=== PATIENT | male | born 1950 | race Caucasian/White ===

== ENCOUNTER 2017-03-20 09:47 | Day surgery (SDC) | payer MEDICARE ==
--- NOTE | 2017-03-13 11:03 | HP ---
CC: Dr. [facility], [facility]; Dr. Chris Hayward* PREOPERATIVE HISTORY AND PHYSICAL: DATE OF PREOPERATIVE HISTORY AND PHYSICAL EXAM: 03/13/17. DATE OF ADMISSION: This patient is scheduled for same day surgery admission by Dr. Fleming on 03/20/17. ATTENDING SURGEON: Dr. Woodrow Fleming* (dictated by Alberto Lam NP). CHIEF COMPLAINT: Right inguinal hernia. HISTORY OF PRESENT ILLNESS: The patient is a 67-year-old male referred to Dr. Fleming by Dr. Jennings for evaluation of a right inguinal hernia. The patient noticed a bulge in the right groin approximately 3 weeks ago. He was just standing and had a twinge of pain into the right testicle and then noted a bulge. He saw Dr. Jennings who made the [facility] to [facility]. The bulge does go away when lying down. He denies any dysuria or change in bowel movements. He has had no previous abdominal or inguinal surgery. Dr. Fleming examined the patient and notes a right inguinal hernia that is reducible; Dr. Fleming has recommended laparoscopic repair of the right inguinal hernia with mesh as a same day surgery procedure and has described the nature of the surgical procedure, the relevant risks, benefits and alternatives and today I reviewed typical postoperative care and recovery. The patient has had a chance to ask questions and states that he understands the information and is satisfied with the answers given to his questions. He will sign surgical consent on the day of surgery. PAST MEDICAL HISTORY: Significant for basal cell carcinoma excised from his nose with a Mohs procedure in 2016, herniated lumbar disk about six years ago with no recurrence and nephrolithiasis requiring cystoscopy, ureteroscopy, and stone retrieval under general anesthesia in 2016. MEDICATIONS: None currently. ALLERGIES: PENICILLIN caused respiratory distress in childhood and he has avoided it ever since. FAMILY HISTORY: No known anesthesia complications, bleeding tendencies or clotting disorders. Mother was diabetic and had a history of ovarian cancer. Father at age 82 with the history of stroke. SOCIAL HISTORY: He is single and retired and has never been a smoker; he drinks alcohol socially and denies the use of other substances. REVIEW OF SYSTEMS: Constitutional: No recent viral illness. No complaints of fatigue or weight loss. Cardiovascular: No chest pain, pressure, or palpitations. No history of deep vein thrombosis or pulmonary embolism. Respiratory: No dyspnea. He jogs for exercise. No chronic cough. GI: No nausea, vomiting, chronic constipation, or diarrhea. No recent change in bowel habits. Genitourinary: History of nephrolithiasis in 2016. No recurrence. No current dysuria. Musculoskeletal: History of lumbar disk herniation, six years ago. No recurrence. No current back pain or joint pain. Neurologic: No conditions or complaints. He denies any previous anesthesia complications. He denies bleeding tendencies and has never received blood transfusion. PHYSICAL EXAMINATION GENERAL SURVEY: The patient is a 67-year-old male, well-developed, well- nourished, in no acute distress. VITAL SIGNS: Height 71 inches, weight 155 pounds, body mass index 21.6, blood pressure 132/78, pulse 78 and regular, respiratory rate 16, temperature 98.3 tympanic. HEENT: Benign. NECK: Supple. No cervical lymphadenopathy. No thyromegaly. BACK: No CVA tenderness. LUNGS: Breath sounds bilaterally clear and equal. HEART: Regular rate and rhythm. No murmurs or rubs appreciated. ABDOMEN: Active bowel sounds. Soft, nondistended, nontender throughout. No obvious masses or evidence of umbilical hernia. No organomegaly. Inguinal exam as done by Dr. Fleming revealed a reducible right inguinal hernia. GENITALIA: Deferred. RECTAL: Deferred. EXTREMITIES: Warm without edema or skin ulceration. NEUROLOGIC: Alert and oriented x3, steady gait. SKIN: Warm, dry, intact. IMPRESSION: Right inguinal hernia. PLAN: Same day surgery admission to Dr. Fleming' service for laparoscopic repair of right inguinal hernia with mesh on 03/20/17. ALBERTO LAM, RESCUE WORKER [id number]/[facility] #: [id number] VANITA
[~2017-03-20 09:47] MED LIST: Buffered Lidocaine 0.9% SYRIN* 5 ML/SYR SYRINGE INTRADERM ONE; Buffered Lidocaine 0.9% SYRIN* 5 ML/SYR SYRINGE ONE; Clindamycin 900 MG IVPREMIX(* 900 MG/50 ML SDV IV ONE; Famotidine IV* 10 MG/ML 2 ML (20 mg) IV ONE; Famotidine IV* 10 MG/ML 2 ML (20 mg) ONE; Metoclopramide TAB* 10 MG ONE; Metoclopramide TAB* 10 MG PO ONE
[2017-03-20] MEDS ORDERED: Midazolam* 1 MG/ML 5 ML VIAL (5 MG) ONE (10:50)
[2017-03-20] MEDS ORDERED: Ondansetron INJ* 2 MG/ML VIAL ONE (10:50)
[2017-03-20] MEDS ORDERED: fentaNYL* 50 MCG/ML 2 ML VIAL (100 MCG VIAL) ONE (10:50)
[2017-03-20] MEDS ORDERED: Dexamethasone IV* 4 MG/ML 1 ML (4 MG) ONE (10:50)
[2017-03-20] MEDS ORDERED: Lidocaine 2% PF * 5 ML VIAL ONE (10:50)
[2017-03-20] MEDS ORDERED: KETAMINE HCL* 50 MG/ML 10 ML VIAL ONE (10:50)
[2017-03-20] MEDS ORDERED: Cisatracurium* 2 MG/ML MDV 5 ML ONE (10:50)
[2017-03-20] MEDS ORDERED: Ketorolac INJ* 30 MG/ML 1 ML VIAL ONE (10:50)
[2017-03-20] MEDS ORDERED: Propofol* 10 MG/ML 20 ML BTL IV PUSH ONE (10:50)
[2017-03-20] MEDS ORDERED: Bupivacaine 0.5% W/EPI SDV* 10 ML VIAL INJ ONE (13:38)
[2017-03-20] MEDS ORDERED: EPHEDrine (Pressors)* 50 MG/ML VIAL ONE (14:23)
[2017-03-20] MEDS ORDERED: oxyCODONE/Acetamin 5/325 MG* TAB PO PRN ×2 (14:43→15:15)
[2017-03-20] MEDS ORDERED: DiMENhydriNATE IV* 50 MG/ML VIAL IV PUSH PRN (14:43)
[2017-03-20] MEDS ORDERED: fentaNYL* 50 MCG/ML 2 ML VIAL (100 MCG VIAL) IV PRN (14:43)
[2017-03-20] MEDS ORDERED: Ondansetron INJ* 2 MG/ML VIAL IV PRN (14:43)
[2017-03-20] MEDS ORDERED: Neostigmine Methylsulfate* 2 MG/2 ML SYRINGE ONE (14:53)
[2017-03-20] MEDS ORDERED: Glycopyrrolate IV* 0.2 MG/ML 1 ML VIAL ONE (14:53)
[2017-03-20 15:58] VITALS: BP 118/68
--- NOTE | 2017-03-21 12:54 | OP ---
DATE OF OPERATION: 03/20/17 [facility] DATE OF : 54 SURGEON: Woodrow Fleming MD. FIRST OFFICER AND FLIGHT INSTRUCTOR: RAMON Starks. ANESTHESIOLOGIST: Dr. Phillips ANESTHESIA: General endotracheal. PRE-OP DIAGNOSIS: Right inguinal hernia. POST-OP DIAGNOSIS: Right inguinal hernia. OPERATIVE PROCEDURE: Laparoscopic preperitoneal repair of right inguinal hernia with mesh. ESTIMATED BLOOD LOSS: Minimal. IV FLUIDS: Crystalloid. SPECIMEN: None. DRAINS: None. COMPLICATIONS: None. COUNTS: Instrument, needle, and sponge counts were correct. FINDINGS: Indirect right inguinal hernia. DESCRIPTION OF PROCEDURE: The patient was brought to the operating room and placed on the table supine. Sequential compression devices were placed on both lower extremities and general anesthesia was administered. A Maravilla catheter was placed. His abdomen was prepped and draped in the usual sterile fashion. Time-out was performed. Local anesthetic was infiltrated to the skin and soft tissue prior to making each incision. A curvilinear infraumbilical incision was created and subcutaneous tissues were divided. The anterior rectus fascia was identified to the right of the midline. It was incised transversely and underlying rectus abdominis muscle was retracted laterally and then two 5-mm trocars were placed along the midline. The preperitoneal space was developed starting from the midline and proceeding laterally towards the left. The Mikhail's ligament was identified. The inferior epigastric vessels were identified and preserved. A large indirect inguinal hernia sac was identified and this was dissected free from the cord structures. Due to the large size of the sac, it was ultimately twisted upon itself, clipped and then divided. Additional clips were placed to make sure the peritoneum was closed, as it was very friable. The dissection proceeded out laterally to the anterosuperior iliac spine. Repair was performed with a Bard 3D Max large size mesh. This was positioned into the preperitoneal space and opened to cover the direct, indirect, and femoral spaces and multiple tacks were placed at the pubic tubercle, Mikhail's ligament, and anterior musculature with care not place any tacks laterally. The mesh was positioned and held out laterally as the preperitoneal space was desufflated in order to make sure that the mesh was in good position. Subsequently, the ports were removed and the infraumbilical port was positioned into the peritoneum in order to visualize the coverage of the mesh. Inspection revealed that the mesh was well covered. The port was then removed and carbon dioxide was released. Infraumbilical incision was closed in two layers with 0 Polysorb to approximate the rectus fascia. Skin incisions were closed with 4-0 Monocryl in subcuticular fashion. [id number]/[facility] #: [id number] MTDD
== END 2017-03-20 16:18 | disposition home or self-care (01) ==
LOC: OR 09:47
PROVIDERS: ATTEND Surgery
DX: K40.90 Unilateral inguinal hernia, without obstruction or gangrene, not specified as recurrent (principal); Z85.828 Personal history of other malignant neoplasm of skin
CPT/HCPCS: A9270-GY; C1781; J1100; J1885; J2250; J2405; J2704; J3010